=== PATIENT | female | born 1950 | race Caucasian/White ===

== ENCOUNTER → 2019-09-14 | Outpatient (CLI) | payer MEDICARE, OTHER | END | disposition home or self-care (01) | LOC: LABPAT 14:20 | PROVIDERS: ATTEND Orthopaedic Surgery | DX: Z01.812 Encounter for preprocedural laboratory examination (principal) | CPT/HCPCS: 87070 ==

== ENCOUNTER → 2019-10-02 | Outpatient (CLI) | payer MEDICARE, OTHER ==
[2019-10-02 11:35] LABS: HCT 45.9 % (34.0-46.0); HGB 15.4 gm/dL (11.4-16.0); MCH 33.7 pg (25.0-35.0); MCHC 33.5 g/dL (31.0-37.0); MCV 100.6 fL (80.0-100.0); Mean Platelet Volume 6.4; Platelet Count 391 k/uL (150-450); RBC 4.57 m/uL (3.80-5.40); RDW 12.7 % (11.5-15.5); WBC 6.6 k/uL (3.8-10.6)
[2019-10-02 11:41] LABS: INR 0.9 (<1.2); Partial Thromboplastin Time 25.7 sec (22.0-30.0)
[2019-10-02 11:43] LABS: ALT 20 U/L (9-52); AST 17 U/L (14-36); African American GFR (CKD) >90 (>60 ml/min/1.73 sqM); Albumin 3.9 g/dL (3.5-5.0); Alkaline Phosphatase 89 U/L (38-126); Anion Gap 8 mmol/L; Blood Urea Nitrogen 11 mg/dL (7-17); Calcium 9.7 mg/dL (8.4-10.2); Carbon Dioxide 25 mmol/L (22-30); Chloride 107 mmol/L (98-107); Glucose 92 mg/dL (74-99); Non-African American GFR(CKD) >90 (>60 ml/min/1.73 sqM); Potassium 4.7 mmol/L (3.5-5.1); Sodium 140 mmol/L (137-145); Total Bilirubin 0.4 mg/dL (0.2-1.3); Total Protein 6.8 g/dL (6.3-8.2)
[2019-10-02 12:16] LABS: Appearance,Urine Clear (Clear); Bilirubin,Urine Negative (Negative); Blood,Urine Negative (Negative); Color,Urine Yellow; Glucose,Urine (UA) Negative (Negative); Ketones,Urine Negative (Negative); Leukocyte Esterase,Urine Trace (Negative); Mucus,Urine Rare /hpf; Nitrite,Urine Negative (Negative); PH, Urine 6.5 (5.0-8.0); Protein,Urine Negative (Negative); RBC,Urine <1 /hpf (0-5); Specific Gravity,Urine 1.007 (1.001-1.035); Squamous Epithelial Cell,Urine <1 /hpf (0-4); Urobilinogen,Urine <2.0 mg/dL (<2.0); WBC,Urine 1 /hpf (0-5)
== END ==
LOC: LABPAT 10:29
PROVIDERS: ATTEND Orthopaedic Surgery
DX: Z01.818 Encounter for other preprocedural examination (principal); Z01.812 Encounter for preprocedural laboratory examination; M16.12 Unilateral primary osteoarthritis, left hip
CPT/HCPCS: 36415; 80053; 81001; 85027; 85610; 85730; 93005

== ENCOUNTER 2019-10-10 08:03 | Inpatient (IN) | payer MEDICARE, OTHER ==
[2019-09-27 12:37] VITALS: BMI 36.3
[~2019-10-10 08:03] MED LIST: ACETAMINOPHEN TAB 500 MG TAB PO ONE; DEXAMETHASONE SOD PHOSPHATE 10 MG/ML 1 ML VIAL IV ONE; GABAPENTIN 300 MG CAP PO ONE; HYDROmorphone 0.5 MG/0.5 ML SYRINGE IVP PRN; MELOXICAM 7.5 MG TAB PO ONE; MIDAZOLAM 2 MG/2 ML VIAL IV PRN; ROPIVACAINE 246.25 MG, EPINEPHrine 0.5 MG, KETOROLAC 30 MG, cloNIDine HCL/PF 80 MCG, WA... MISCELLANE ONE; TRANEXAMIC ACID 1,000 MG in SODIUM CHLORIDE 0.9% 100 ML IVPB ONE
[2019-10-10] MEDS ORDERED: LIDOCAINE 1% 20 ML VIAL (10MG/ML) FOR IV START INTRADERMA ONE (08:38)
[2019-10-10] MEDS: LACTATED RINGERS 1,000 ML IV SCH (08:38)
[2019-10-10] MEDS ORDERED: DIAZEPAM 5 MG TAB PO PRN (08:43)
[2019-10-10] MEDS ORDERED: HYDROmorphone 0.5 MG/0.5 ML SYRINGE IVP PRN ×3 (08:43)
[2019-10-10] MEDS ORDERED: NALOXONE 0.4 MG/ML 1 ML VIAL IV PRN (08:43)
[2019-10-10] MEDS ORDERED: ONDANSETRON 4 MG/2 ML VIAL IVP PRN (08:43)
[2019-10-10] MEDS ORDERED: MAGNESIUM HYDROXIDE 2,400 MG/10 ML CUP PO PRN (08:43)
[2019-10-10] MEDS ORDERED: hydrOXYzine PAMOATE 25 MG CAP PO PRN (08:43)
[2019-10-10] MEDS ORDERED: HYDROcodone/APAP 5-325MG 1 EACH TAB PO PRN (08:43)
[2019-10-10] MEDS: ONDANSETRON 4 MG/2 ML VIAL IVP ONE ×2 (08:45→13:09)
[2019-10-10] MEDS ORDERED: HEPARIN SODIUM,PORCINE 10,000 UNIT/ML 1 ML VIAL ONE (09:04)
[2019-10-10] MEDS ORDERED: MIDAZOLAM 2 MG/2 ML VIAL ONE (09:04)
[2019-10-10] MEDS ORDERED: TRANEXAMIC ACID 1,000 MG/10 ML VIAL ONE (09:04)
[2019-10-10] MEDS ORDERED: SODIUM CHLORIDE 0.9% IRRIG 1,000 ML BTL IRRIGATION ONE (09:04)
[2019-10-10] MEDS ORDERED: SODIUM CHLORIDE 0.9% 100 ML BAG ONE (09:04)
[2019-10-10] MEDS ORDERED: ceFAZolin 3,000 MG in SODIUM CHLORIDE 0.9% IRRIGATIO 3,000 ML IRRIGATION ONE ×4 (09:49)
[2019-10-10] MEDS ORDERED: LACTATED RINGERS 1,000 ML IV ONE (09:58)
--- NOTE | 2019-10-10 10:36 | P.OP ---
Date of Procedure: 10/10/19 Preoperative Diagnosis: Severe osteoarthritis left hip Postoperative Diagnosis: Severe osteoarthritis left hip Procedure(s) Performed: Left total hip arthroplasty with a direct anterior approach Implants: Mckoy and nephew Polarstem size 6 standard Mckoy [employer] Nephew R3, 3 hole acetabular shell, 52 mm Mckoy [employer] Nephew reflection 6.5 mm cancellus screw, 20 mm 2 Mckoy [employer] Nephew R3, XLPE 20 acetabular liner Mckoy & Nephew Oxinium femoral head 36 m, +8 All components were press-fit. The articulation is Oxinium on polyethylene. Anesthesia: spinal Surgeon: Renzo Proctor Hide Spreader #1: Darline Velazquez Estimated Blood Loss (ml): 100 Pathology: other (Femoral head) Condition: stable Disposition: PACU Indications for Procedure: After failure of conservative treatment we discussed the surgical and nonsurgical treatment options at length. Patient wishes to proceed with a total hip arthroplasty with a direct anterior approach. Complications specific to this procedure were discussed at length, including but not limited to infection, leg length discrepancy, dislocation, and nerve injury. Patient is aware of all these complications and informed consent was obtained Operative Findings: The operative findings are consistent with severe osteoarthritis of the left hip Description of Procedure: Patient was seen and evaluated in the preoperative area, consent was reviewed, and the surgical site was marked with a skin marker. Patient was then brought to the operating room and given prophylactic antibiotics intravenously. 1 g of Tranexamic acid was also given. A spinal anesthetic was administered by the anesthesia department. The patient was then placed on the Chamisal table with the bony prominences well-padded. The hip area was then prepped and draped in usual sterile fashion. A universal timeout was then performed, which confirmed the patient's name, surgical site, ALLERGIES, and procedure being performed. Next the incision site was located at 1 cm distal and 1 cm lateral to the anterior superior iliac spine. The skin and subcutaneous tissues were sharply incised. Incision was carefully dissected down to the fascia overlying the tensor fascia pamela muscle. This fascia was then incised in line with the incision. Next, using blunt finger dissection, the tensor fascia pamela muscle was dissected off its investing fascia. The muscle was then carefully retracted laterally with a cobra retractor over the lateral neck of the femur. Next, the circumflex vessels were identified and cauterized using the AquaMantis device. The anterior hip capsule was then exposed. The capsule was then opened and an inverted T fashion. Cobra retractors were then placed intracapsularly. The proximal femur was then visualized. The femoral neck was then osteotomized appropriate level above the lesser trochanter. Small amount of traction was placed with the Chamisal table. A small wedge of bone was then removed from the remaining femoral head. Next, using a corkscrew femoral head was easily removed from the acetabulum. On gross visual inspection, the femoral head had complete loss of articular cartilage in multiple periarticular osteophytes. Attention was then turned to the acetabulum. the acetabulum was exposed and any remaining labrum was excised. Sequential reaming of the acetabulum was performed using fluoroscopic guidance. When the appropriate size was reached, a trial was then placed. The position and fit of the trial was checked with fluoroscopy. The trial was then removed. Then, using fluoroscopic guidance, the final implant was impacted at 20 of anteversion and 40 of abduction, and fully seated in the acetabulum. 2 screws were then placed in the acetabulum. Again fluoroscopy was used to check position of the screws. Next, the liner was then impacted, with a 20 elevated liner located in the anterior superior quadrant. Component locking was confirmed. Attention was then directed to the femur. With the aid of the Chamisal table, the femur was externally rotated to approximately 130, extended, and abducted under the opposite leg. A side hook was then placed under the proximal femur, and the side hook elevator was used to elevate the proximal femur. Retractors were then placed. A capsular release was performed, as well as a release of the conjoined tendon, which afforded excellent visualization of the proximal femur. Next, a box osteotome was used to lateralize the proximal femur. A wood stock blank handler was then used to locate the femoral canal. Sequential broaching was then performed with appropriate size which afforded excellent fixation in the proximal femur. A trial was then placed with appropriate head and neck, and the hip was gently reduced with the aid of the Chamisal table. Fluoroscopy was then used to check position of the components, as well as to ensure equal leg lengths. The hip was then gently dislocated and the trials were then removed. Final implants were then impacted and the hip was again reduced. Final fluoroscopic x-rays confirmed that the components were in anatomic position, as well as equal leg lengths. The hip was also taken through range of motion, and found to be s table. The hip was then copiously irrigated with antibiotic solution with pulsatile lavage. The hip was then irrigated with Irrisept solution. The soft tissues were then injected with a ropivacaine solution, which consisted of 246.25 mg of ropivacaine, 0.5 mg of epinephrine, 30 mg of Toradol, 80 g of clonidine, and 48.45 mL of sterile water, for a total of 100 mL of fluid injected. A second d ose of 1 g of Tranexamic acid was also given. the fascia was then closed with 2-0 strata fix suture. The subcutaneous tissue was closed with 3-0 Vicryl. The subcuticular tissue was closed with 3-0 strata fix suture. The skin was then closed with Dermabond glue and a sterile silver dressing. The patient was then transferred to the recovery room in stable condition. The payroll assistant NICO Archibald was required due to the complexity of surgery, and the need for skilled surgical scheduler for positioning, draping, exposure, retraction, and closure of the wound.
--- NOTE | 2019-10-10 10:46 | FL ---
EXAMINATION TYPE: FL guidance operating room DATE OF EXAM: 10/10/2019 HISTORY: Flouroscopy time 44 seconds of fluoroscopy provided. IMPRESSION: 1. Fluoroscopy time.
--- NOTE | 2019-10-10 10:53 | XR ---
EXAMINATION TYPE: XR Hip Limited LT DATE OF EXAM: 10/10/2019 COMPARISON: NONE HISTORY: Postop TECHNIQUE: One view submitted. FINDINGS: There is postsurgical change in near anatomic alignment. There is soft tissue edema and emphysema. IMPRESSION: 1. Postoperative change. Appears in near-anatomic alignment.
[2019-10-10] MEDS: SODIUM CHLORIDE 0.9% 1,000 ML IV SCH ×2 (15:06→20:45)
[2019-10-10] MEDS: HYDROcodone/APAP 5-325MG 1 EACH TAB PO PRN ×2 (17:20→23:32)
[2019-10-10] MEDS: SENNOSIDES-DOCUSATE SODIUM 1 EACH TAB PO SCH (20:43)
[2019-10-10] MEDS ORDERED: ASPIRIN 325 MG TAB PO SCH (21:00)
[2019-10-10 21:44] LABS: Basophils % (A) 0 %; Eosinophils % (A) 0 %; HCT 40.6 % (34.0-46.0); HGB 13.1 gm/dL (11.4-16.0); Lymphocytes # (A) 0.8 k/uL (1.0-4.8); Lymphocytes % (A) 8 %; MCH 32.5 pg (25.0-35.0); MCHC 32.3 g/dL (31.0-37.0); MCV 100.5 fL (80.0-100.0); Mean Platelet Volume 6.4; Monocytes # (A) 0.4 k/uL (0-1.0); Monocytes % (A) 4 %; Neutrophils # (A) 8.8 k/uL (1.3-7.7); Neutrophils % (A) 87 %; Platelet Count 380 k/uL (150-450); RBC 4.04 m/uL (3.80-5.40); RDW 12.6 % (11.5-15.5); WBC 10.1 k/uL (3.8-10.6)
[2019-10-10 22:12] LABS: INR 0.9 (<1.2); Partial Thromboplastin Time 24.9 sec (22.0-30.0); Prothrombin Time 9.8 sec (9.0-12.0)
--- NOTE | 2019-10-10 22:43 | P.CONS ---
History of Present Illness - Reason for Consult Consult date: 10/10/19 Medical management Requesting physician: Renzo Proctor - Chief Complaint Left hip surgery - History of Present Illness Consultation: This is a pleasant 68-year-old patient of Dr. Juan Mckoy. Patient has come undergone left total hip arthroplasty. Postprocedure some pain is present. No nausea vomiting. No dizziness no lightheadedness. No chest pain. Chronic st able medical conditions include lupus, rheumatoid arthritis, skin cancer and osteoarthritis. Patient has been on azathioprined. Postprocedure patient to the bathroom psych intervention radiology and she'll require a bit blood in the same. Denies any prior history of bleeding/hematuria. No no Dudley catheter was placed. Patient is on aspirin for DVT prophylaxis. Denies any bleeding complications from lupus in the past. Denies any clots strokes etc. Review of systems: GEN.: Tired EYES: None HEENT: None NECK: None RESPIRATORY: None CARDIOVASCULAR: None GASTROINTESTINAL: None GENITOURINARY: As above MUSCULOSKELETAL: Joint pains LYMPHATICS: None HEMATOLOGICAL: None PSYCHIATRY: None NEUROLOGICAL: None Past medical history to include: Lupus, rheumatoid arthritis, skin cancer osteoarthritis Social history: Does not smoke or drink alcohol. Lives alone Physical examination: VITAL SIGNS: 97.7, 98, 16, 128/74, 95% room air GENERAL: BMI 36.5 laying in bed. EYES: Pupils equal. Conjunctiva normal. HEENT: External appearance of nose and ears normal, oral cavity grossly normal. NECK: JVD not raised; masses not palpable. HEART: First and second heart sounds are normal; no edema. LUNGS: Respiratory rate normal; clear to auscultation. ABDOMEN: Soft, nontender, liver spleen not palpable, no masses palpable. PSYCH: Alert and oriented x3; mood and affect normal. NEUROLOGICAL: Cranial nerves grossly intact; no facial asymmetry, power and sensation grossly intact. LYMPHATICS: No lymph nodes palpable in the axilla and neck MUSCULOSKELETAL: Left hip with a dressing INVESTIGATIONS, reviewed in the clinical context: White count 10.1 hemoglobin 13.1 platelets 380 pro time 9.8 PTT 24.9 to fibrinogen 362 Assessment: -Left total hip arthroplasty -Primary osteoarthritis -Primary rheumatoid arthritis -Lupus disorder -New onset hematuria. I did order a pro time and PTT platelet count with halting normal. Patient had been ordered aspirin for DVT prophylaxis. That currently has been held. Patient has been Venodyne boots. Plan: We'll keep a close eye on the patient. Told the patient to keep a close eye the urine output. If need be urology will be consulted. Aspirin has been put on hold for right now. Compression stockings are noted. Discussed with the nurse. Thank you Dr. Proctor Past Medical History Past Medical History: Cancer, Rheumatoid Arthritis (RA) Additional Past Medical History / Comment(s): LUPUS, SKIN CANCER-BASAL CELL, History of Any Multi-Drug Resistant Organisms: None Reported Past Surgical History: Cholecystectomy, Hernia Repair, Tonsillectomy, Tubal Ligation Additional Past Surgical History / Comment(s): SKIN LESIONS,RIGHT TOTAL HIP, TLK Past Anesthesia/Blood Transfusion Reactions: Motion Sickness, Postoperative Nausea & Vomiting (PONV) Past Psychological History: No Psychological Hx Reported Smoking Status: Never smoker Past Alcohol Use History: None Reported Past Drug Use History: None Reported - Past Family History Father Family Medical History: Cancer Medications and Allergies Home Medications Medication Instructions Recorded Confirmed Type Loratadine [Claritin] 10 mg PO DAILY 03/20/15 10/10/19 History Acetaminophen Tab [Tylenol Tab] 1,000 mg PO Q6HR PRN 09/27/19 10/10/19 History Acetaminophen/Diphenhydramine 1 tab PO HS 09/27/19 10/10/19 History [Tylenol PM 500-25mg] Biotin 10,000 mcg PO DAILY 09/27/19 10/10/19 History Naproxen [Naprosyn] 250 mg PO TID 09/27/19 10/10/19 History Omeprazole [PriLOSEC] 20 mg PO AC-BRKFST 09/27/19 10/10/19 History azaTHIOprine [Imuran] 25 mg PO DAILY 09/27/19 10/10/19 History Allergies Allergy/AdvReac Type Severity Reaction Status Date / Time adhesive tape Allergy SKIN Verified 10/10/19 08:30 BLISTERS AND SKIN TEARS hydroxychloroquine sulfate Allergy Rash/Hives Verified 10/10/19 08:30 [From Plaquenil] methotrexate Allergy NASAL Verified 10/10/19 08:30 BLEEDING Physical Exam Vitals: Vital Signs Temp Pulse Resp BP Pulse Ox 10/10/19 15:00 97.7 F 98 16 118/74 95 10/10/19 14:03 116/53 10/10/19 13:00 98 16 113/53 95 10/10/19 12:30 100 16 111/59 95 10/10/19 12:00 90 16 112/64 97 10/10/19 11:45 85 14 112/52 98 10/10/19 11:30 86 16 128/58 99 10/10/19 11:15 84 16 114/50 97 10/10/19 10:57 96.8 F L 90 19 97/60 98 10/10/19 08:28 97.5 F L 75 16 154/75 98 Intake and Output 10/10/19 10/10/19 10/10/19 06:59 14:59 22:59 Intake Total 1501 Output Total 100 500 Balance 1401 -500 Intake: IV 1501 Output: Urine 500 Estimated Blood Loss 100 Other: Voiding Method Toilet Toilet # Voids 1 Weight 102.6 kg Results CBC & Chem 7: 10/10/19 21:13 Labs: Abnormal Lab Results - Last 24 Hours (Table) 10/10/19 Range/Units 21:13 MCV 100.5 H (80.0-100.0) fL Neutrophils # 8.8 H (1.3-7.7) k/uL Lymphocytes # 0.8 L (1.0-4.8) k/uL
[2019-10-10 23:34] LABS: Appearance,Urine Clear (Clear); Bilirubin,Urine Negative (Negative); Blood,Urine Negative (Negative); Color,Urine Dark Brown; Glucose,Urine (UA) Negative (Negative); Ketones,Urine Negative (Negative); Leukocyte Esterase,Urine Trace (Negative); Mucus,Urine Occasional /hpf; Nitrite,Urine Negative (Negative); PH, Urine 5.5 (5.0-8.0); Protein,Urine Negative (Negative); RBC,Urine 1 /hpf (0-5); Specific Gravity,Urine 1.022 (1.001-1.035); Squamous Epithelial Cell,Urine <1 /hpf (0-4); Urobilinogen,Urine <2.0 mg/dL (<2.0); WBC,Urine 1 /hpf (0-5)
[2019-10-11] MEDS: LACTATED RINGERS 1,000 ML IV SCH (03:48)
[2019-10-11 07:30] LABS: Basophils % (A) 0 %; Eosinophils % (A) 1 %; HCT 37.2 % (34.0-46.0); HGB 12.4 gm/dL (11.4-16.0); Lymphocytes # (A) 1.4 k/uL (1.0-4.8); Lymphocytes % (A) 22 %; MCH 33.3 pg (25.0-35.0); MCHC 33.4 g/dL (31.0-37.0); MCV 99.9 fL (80.0-100.0); Mean Platelet Volume 6.3; Monocytes # (A) 0.4 k/uL (0-1.0); Monocytes % (A) 7 %; Neutrophils # (A) 4.5 k/uL (1.3-7.7); Neutrophils % (A) 70 %; Platelet Count 330 k/uL (150-450); RBC 3.72 m/uL (3.80-5.40); RDW 12.7 % (11.5-15.5); WBC 6.5 k/uL (3.8-10.6)
[2019-10-11] MEDS: MELOXICAM 7.5 MG TAB PO SCH (08:18)
[2019-10-11] MEDS: HYDROcodone/APAP 5-325MG 1 EACH TAB PO PRN ×3 (08:19→20:07)
--- NOTE | 2019-10-11 08:32 | P.PN ---
Subjective Progress Note Date: 10/11/19 This is a 68-year-old female who is status post left total hip arthroplasty. This is postoperative day #1 and patient is seen and evaluated at bedside with Dr. Renzo Proctor. Patient states that she has been up and walking, but does have soreness in the left hip. Patient also complains of blood in the urine which started yesterday. Patient states that she has not had symptoms of hem aturia previously. Patient denies any pain with urination, fever/chills, numbness, weakness, tingling, abdominal pain, shortness of breath or chest pain. Objective - Vital Signs Vital signs: Vital Signs Temp 98.3 F 10/10/19 23:05 Pulse 86 10/10/19 23:05 Resp 16 10/10/19 19:18 BP 119/75 10/10/19 23:05 Pulse Ox 97 10/10/19 23:05 Intake & Output 10/10/19 10/11/19 10/11/19 18:59 06:59 18:59 Intake Total 1501 960 Output Total 600 Balance 901 960 Weight 102.6 kg Intake: IV 1501 Oral 960 Output: Urine 500 Estimated Blood Loss 100 Other: Voiding Method Toilet Toilet # Voids 1 1 - Exam Vital signs are stable. Patient is in no acute distress and is alert and oriented 3. Calf is soft and nontender to palpation. Dressing is clean, dry, and intact. Patient has full foot and ankle motion without pain or difficulty. Neurovascular status and circulatory status are intact. - Labs CBC & Chem 7: 10/11/19 07:18 Labs: Abnormal Lab Results - Last 24 Hours (Table) 10/10/19 10/10/19 10/11/19 Range/Units 21:13 23:20 07:18 RBC 3.72 L (3.80-5.40) m/uL MCV 100.5 H (80.0-100.0) fL Neutrophils # 8.8 H (1.3-7.7) k/uL Lymphocytes # 0.8 L (1.0-4.8) k/uL Ur Leukocyte Esterase Trace H (Negative) Urine Mucus Occasional H (None) /hpf Assessment and Plan (1) Osteoarthritis of left hip Current Visit: Yes Status: Acute Code(s): M16.12 - UNILATERAL PRIMARY OSTEOARTHRITIS, LEFT HIP SNOMED Code(s): 169561368183906 (2) S/P total hip arthroplasty Current Visit: Yes Status: Acute Code(s): Z96.649 - PRESENCE OF UNSPECIFIED ARTIFICIAL HIP JOINT SNOMED Code(s): 294026177778 Plan: Continue routine postop care and pain control. Continue anticoagulation with aspirin. Weightbearing as tolerated with a walker. Leave dressing in place for 10 days. Appreciate input from medicine and urology. Anticipate discharge to [facility] on Wednesday.
--- NOTE | 2019-10-11 08:56 | P.GSCN ---
History of Present Illness Consult date: 10/11/19 Reason for Consult: Hematuria History of present illness: The patient is a pleasant 68-year-old female who underwent a left hip arthroplasty yesterday for arthritis and pain. Yesterday evening she developed gross hematuria, bright red blood per urination. This occurred 3 episodes over the night and has clear this morning. This was new onset. She's never had previous hematuria. Urinalysis preoperatively was clear. She was having some back pain but it was more low back then flank. She has had no dysuria frequency or urgency. She did not have a catheter intraoperatively. No family history of stones. There is a family history of kidney failure. Review of Systems All systems: negative - Constitutional Denies fever, Denies weight loss - EENT Eyes: denies blurred vision Ears, nose, mouth and throat: Denies dysphagia - Cardiovascular Denies chest pain, Denies shortness of breath - Respiratory Denies cough, Denies 7 - Gastrointestinal Reports as per HPI - Genitourinary Genitourinary: Denies dysuria, Denies hematuria - Integumentary Denies rash, Denies unusual bruising - Neurological Denies headaches, Denies syncope - Hematologic/Lymphatic Denies easy bleeding, Denies easy bruising Past Medical History Past Medical History: Cancer, Rheumatoid Arthritis (RA) Additional Past Medical History / Comment(s): LUPUS, SKIN CANCER-BASAL CELL, History of Any Multi-Drug Resistant Organisms: None Reported Past Surgical History: Cholecystectomy, Hernia Repair, Tonsillectomy, Tubal Ligation Additional Past Surgical History / Comment(s): SKIN LESIONS,RIGHT TOTAL HIP, TLK Past Anesthesia/Blood Transfusion Reactions: Motion Sickness, Postoperative Nausea & Vomiting (PONV) Past Psychological History: No Psychological Hx Reported Smoking Status: Never smoker Past Alcohol Use History: None Reported Past Drug Use History: None Reported - Past Family History Father Family Medical History: Cancer Medications and Allergies Home Medications Medication Instructions Recorded Confirmed Type Loratadine [Claritin] 10 mg PO DAILY 03/20/15 10/10/19 History Acetaminophen Tab [Tylenol Tab] 1,000 mg PO Q6HR PRN 09/27/19 10/10/19 History Acetaminophen/Diphenhydramine 1 tab PO HS 09/27/19 10/10/19 History [Tylenol PM 500-25mg] Biotin 10,000 mcg PO DAILY 09/27/19 10/10/19 History Naproxen [Naprosyn] 250 mg PO TID 09/27/19 10/10/19 History Omeprazole [PriLOSEC] 20 mg PO AC-BRKFST 09/27/19 10/10/19 History azaTHIOprine [Imuran] 25 mg PO DAILY 09/27/19 10/10/19 History Aspirin 325 mg PO BID #60 tab 10/11/19 Rx HYDROcodone/APAP 5-325MG [Dalbo 1 - 2 tab PO Q6HR PRN #56 tab 10/11/19 Rx 5-325] Sennosides [Senokot] 1 tab PO BID #60 tablet 10/11/19 Rx Allergies Allergy/AdvReac Type Severity Reaction Status Date / Time adhesive tape Allergy SKIN Verified 10/10/19 08:30 BLISTERS AND SKIN TEARS hydroxychloroquine sulfate Allergy Rash/Hives Verified 10/10/19 08:30 [From Plaquenil] methotrexate Allergy NASAL Verified 10/10/19 08:30 BLEEDING Surgical - Exam Vital Signs Temp Pulse Resp BP Pulse Ox 97.5 F L 75 16 154/75 98 10/10/19 08:28 10/10/19 08:28 10/10/19 08:28 10/10/19 08:28 10/10/19 08:28 - General well developed, well nourished, no distress - Eyes PERRL - ENT no hearing loss - Neck trachea midline - Respiratory normal expansion, normal respiratory effort - Cardiovascular Rhythm: regular - Abdomen Abdomen: soft, non tender - Integumentary no rash, no growths - Neurologic normal coordination, normal sensation - Musculoskeletal The patient is using a walker due to the recent left hip arthroplasty normal posture - Psychiatric oriented to time, oriented to person, oriented to place, speech is normal, memory intact Results - Labs 10/11/19 07:18 Abnormal Lab Results - Last 24 Hours (Table) 10/10/19 10/10/19 10/11/19 Range/Units 21:13 23:20 07:18 RBC 3.72 L (3.80-5.40) m/uL MCV 100.5 H (80.0-100.0) fL Neutrophils # 8.8 H (1.3-7.7) k/uL Lymphocytes # 0.8 L (1.0-4.8) k/uL Ur Leukocyte Esterase Trace H (Negative) Urine Mucus Occasional H (None) /hpf Assessment and Plan Assessment: Impression: Gross hematuria and new-onset. Back pain probably related to hip with decreased mobility. Recommendations: I will obtain a urinalysis and a KUB to rule out obvious infection and/or stone. If Nothing is identified then she may be discharged from a urologic standpoint to undergo her rehab. I will then see her as an outpatient for further evaluation.
--- NOTE | 2019-10-11 10:24 | XR ---
EXAMINATION TYPE: XR KUB DATE OF EXAM: 10/11/2019 COMPARISON: NONE HISTORY: Pain TECHNIQUE: One view abdominal series FINDINGS: The osseous structures are intact. The bowel gas pattern is nonspecific. Scattered air-fluid levels noted. Surgical clips in the right upper quadrant. Curvature the spine with degenerative change. Post operative change involving the hips bilaterally. IMPRESSION: 1. Nonspecific abdomen. Ileus or enteritis in the differential diagnosis. Partial obstruction not exc luded correlate clinically.
[2019-10-11] MEDS: SODIUM CHLORIDE 0.9% 1,000 ML IV SCH (12:11)
[2019-10-11] MEDS: ASPIRIN 325 MG TAB PO SCH ×2 (12:11→20:07)
[2019-10-11 18:22] LABS: Appearance,Urine Clear (Clear); Bilirubin,Urine Negative (Negative); Blood,Urine Negative (Negative); Color,Urine Light Yellow; Glucose,Urine (UA) Negative (Negative); Ketones,Urine Negative (Negative); Leukocyte Esterase,Urine Negative (Negative); Nitrite,Urine Negative (Negative); PH, Urine 5.5 (5.0-8.0); Protein,Urine Negative (Negative); Specific Gravity,Urine 1.006 (1.001-1.035); Urobilinogen,Urine <2.0 mg/dL (<2.0)
[2019-10-11] MEDS: SENNOSIDES-DOCUSATE SODIUM 1 EACH TAB PO SCH (20:07)
--- NOTE | 2019-10-11 23:27 | P.PN ---
Progress Note - Text Progress Note Date: 10/11/19 - Chief Complaint Left hip surgery Interval history: This is a pleasant 68-year-old patient of Dr. Juan Mckoy. Patient has come undergone left total hip arthroplasty. Postprocedure some pain is present. No nausea vomiting. No dizziness no lightheadedness. No chest pain. Chronic stable medical conditions include lupus, rheumatoid arthritis, skin cancer and osteoarthritis. Patient has been on azathioprine. Postprocedure patient to the bathroom noticed a bit of blood in the same. Denies any prior history of bleeding/hematuria. No no Dudley catheter was placed. Patient is on aspirin for DVT prophylaxis. Denies any bleeding complications from lupus in the past. Denies any clots strokes etc. Today-laying in bed. No new issues. Some pain at the operative site. Did work with therapy. Review of systems: Was done for constitutional, cardiovascular, GI, pulmonary. relevant finding as above Active Medications Hydrocodone Bitart/Acetaminophen (Delmar 5-325) 1 each PO Q6HR PRN PRN Reason: Pain Scale 1 to 5 Hydrocodone Bitart/Acetaminophen (Delmar 5-325) 2 each PO Q6HR PRN PRN Reason: Pain Scale 6 to 10 Last Admin: 10/11/19 20:07 Dose: 2 each Documented by: Aspirin (Aspirin) 325 mg PO BID [facility] Last Admin: 10/11/19 20:07 Dose: 325 mg Documented by: Diazepam (Valium) 2.5 mg PO Q8HR PRN PRN Reason: Mild Spasms Hydromorphone HCl (Dilaudid) 0.125 mg IVP Q3HR PRN PRN Reason: Pain Scale 1 to 3 Hydromorphone HCl (Dilaudid) 0.25 mg IVP Q3HR PRN PRN Reason: Pain Scale 4 to 6 Hydromorphone HCl (Dilaudid) 0.5 mg IVP Q3HR PRN PRN Reason: Pain Scale 7 to 10 Hydroxyzine Pamoate (Vistaril) 25 mg PO Q4HR PRN PRN Reason: Nausea, Anxiety, Pain Control Sodium Chloride (Saline 0.9%) 1,000 mls @ 70 mls/hr IV .[id number] [facility] Last Admin: 10/11/19 12:11 Dose: 70 mls/hr Documented by: Magnesium Hydroxide (Milk Of Magnesia) 2,400 mg PO DAILY PRN PRN Reason: Constipation Meloxicam (Mobic) 7.5 mg PO DAILY [facility] Last Admin: 10/11/19 08:18 Dose: 7.5 mg Documented by: Naloxone HCl (Narcan) 0.2 mg IV Q2M PRN PRN Reason: Opioid Reversal Ondansetron HCl (Zofran) 4 mg IVP Q8H PRN PRN Reason: Nausea And Vomiting Senna/Docusate Sodium (Senokot-S) 2 each PO HS [facility] Last Admin: 10/11/19 20:07 Dose: 2 each Documented by: Physical examination: VITAL SIGNS: 98.4, 92, 16, 104/66, 95% room air GENERAL: Laying in bed, not in distress. EYES: Pupils equal. Conjunctiva normal. HEENT: External appearance of nose and ears normal, oral cavity grossly normal. NECK: JVD not raised; masses not palpable. HEART: First and second heart sounds are normal; no edema. LUNGS: Respiratory rate normal; clear to auscultation. ABDOMEN: Soft, nontender, liver spleen not palpable, no masses palpable. PSYCH: Alert and oriented x3; mood and affect normal. MUSCULOSKELETAL: Left hip with a dressing INVESTIGATIONS, reviewed in the clinical context: White count 6.5 hemoglobin 12.4, UA negative Previous testing White count 10.1 hemoglobin 13.1 platelets 380 pro time 9.8 PTT 24.9 to fibrinogen 362 Assessment: -Left total hip arthroplasty -Primary osteoarthritis -Primary rheumatoid arthritis -Lupus disorder -New onset hematuria. Hematological workup has come back negative. UA screen negative. No further bleeding. Plan: Stable. Continue current medication treatment plan. Patient was seen by urology. Patient has been receiving aspirin. Thank you Dr. Proctor
[2019-10-12] MEDS: SODIUM CHLORIDE 0.9% 1,000 ML IV SCH (01:14)
[2019-10-12] MEDS: HYDROcodone/APAP 5-325MG 1 EACH TAB PO PRN ×4 (02:33→20:25)
[2019-10-12] MEDS: ASPIRIN 325 MG TAB PO SCH ×2 (08:02→19:53)
[2019-10-12] MEDS: MELOXICAM 7.5 MG TAB PO SCH (08:02)
--- NOTE | 2019-10-12 10:19 | P.PN ---
Subjective Progress Note Date: 10/12/19 This is a 68-year-old female who is status post left total hip arthroplasty. This is postoperative day #2 and patient is seen and evaluated at bedside with Dr. Renzo Proctor. Patient states that the blood in her urine has resolved. Patient states that she has been up and walking with physical therapy. Patient denies any pain with urination, fever/chills, numbness, weakness, tingling, abdominal pain, shortness of breath or chest pain. Objective - Vital Signs Vital signs: Vital Signs Temp 98.3 F 10/12/19 07:07 Pulse 89 10/12/19 07:07 Resp 17 10/12/19 07:07 BP 135/78 10/12/19 07:07 Pulse Ox 95 10/12/19 07:07 Intake & Output 10/11/19 10/12/19 10/12/19 18:59 06:59 18:59 Intake Total 800 960 Balance 800 960 Intake: IV 560 Sodium Chloride 0.9% 1, 560 000 ml @ 70 mls/hr IV . [id number] [facility] Rx#:[id number] Oral 240 960 Other: Voiding Method Toilet # Voids 1 1 # Bowel Movements 1 - Exam Vital signs are stable. Patient is in no acute distress and is alert and orient ed 3. Calf is soft and nontender to palpation. Dressing is clean, dry, and intact. Patient has full foot and ankle motion without pain or difficulty. Neurovascular status and circulatory status are intact. - Labs CBC & Chem 7: 10/11/19 07:18 Assessment and Plan (1) Osteoarthritis of left hip Current Visit: Yes Status: Acute Code(s): M16.12 - UNILATERAL PRIMARY OSTEOARTHRITIS, LEFT HIP SNOMED Code(s): 936176464848255 (2) S/P total hip arthroplasty Current Visit: Yes Status: Acute Code(s): Z96.649 - PRESENCE OF UNSPECIFIED ARTIFICIAL HIP JOINT SNOMED Code(s): 288267831120 Plan: Continue routine postop care and pain control. Continue anticoagulation with aspirin. Weightbearing as tolerated with a walker. Leave dressing in place for 10 days. Appreciate input from medicine and urology. Anticipate discharge to [facility] on Wednesday.
--- NOTE | 2019-10-12 11:37 | P.PN ---
Subjective Progress Note Date: 10/12/19 The patient was seen for hematuria. Her urinalysis was clear one performed yesterday. Her KUB showed no evident stone. I will see her as an outpatient in the office. Objective - Vital Signs Vital signs: Vital Signs Temp 98.3 F 10/12/19 07:07 Pulse 89 10/12/19 07:07 Resp 17 10/12/19 07:07 BP 135/78 10/12/19 07:07 Pulse Ox 95 10/12/19 07:07 Intake & Output 10/11/19 10/12/19 10/12/19 18:59 06:59 18:59 Intake Total 800 960 Balance 800 960 Intake: IV 560 Sodium Chloride 0.9% 1, 560 000 ml @ 70 mls/hr IV . [id number] Rx#:[id number] Oral 240 960 Other: Voiding Method Toilet # Voids 1 1 # Bowel Movements 1 - Labs CBC & Chem 7: 10/11/19 07:18
[2019-10-12 11:58] LABS: APTT 40 Sec(s) (<43); Dilute Russell Viper Venom 37 Sec(s) (<44)
[2019-10-12] MEDS: SENNOSIDES-DOCUSATE SODIUM 1 EACH TAB PO SCH (19:53)
[2019-10-13] MEDS: HYDROcodone/APAP 5-325MG 1 EACH TAB PO PRN ×2 (02:49→08:16)
[2019-10-13 07:35] LABS: Basophils % (A) 0 %; Eosinophils # (A) 0.3 k/uL (0-0.7); Eosinophils % (A) 5 %; HCT 34.9 % (34.0-46.0); HGB 11.6 gm/dL (11.4-16.0); Lymphocytes # (A) 1.4 k/uL (1.0-4.8); Lymphocytes % (A) 21 %; MCH 33.2 pg (25.0-35.0); MCHC 33.3 g/dL (31.0-37.0); MCV 99.6 fL (80.0-100.0); Mean Platelet Volume 7.4; Monocytes # (A) 0.4 k/uL (0-1.0); Monocytes % (A) 5 %; Neutrophils # (A) 4.5 k/uL (1.3-7.7); Neutrophils % (A) 66 %; Platelet Count 330 k/uL (150-450); RDW 12.4 % (11.5-15.5); WBC 6.7 k/uL (3.8-10.6)
[2019-10-13 08:11] VITALS: BP 118/71; PULSE 86; RESP 17; TEMP 98.5
[2019-10-13] MEDS: ASPIRIN 325 MG TAB PO SCH (08:16)
[2019-10-13] MEDS: MELOXICAM 7.5 MG TAB PO SCH (08:16)
--- NOTE | 2019-10-13 08:35 | P.DS ---
Providers Date of admission: 10/10/19 08:03 Expected date of discharge: 10/13/19 Attending physician: Renzo Proctro Consults: 10/10/19 08:43 Consult Physician Routine Consulting Provider: Keven Bal Consult Reason/Comments: medical management Do you want consulting provider notified?: Yes 10/10/19 20:46 Consult Physician Urgent Consulting Provider: Marcell Little Consult Reason/Comments: hematuria Do you want consulting provider notified?: Yes Primary care physician: Juan Mckoy MD - Discharge Diagnosis(es) (1) Osteoarthritis of left hip Current Visit: Yes Status: Acute (2) S/P total hip arthroplasty Current Visit: Yes Status: Acute Hospital Course: This is a 68-year-old female with known history of degenerative arthritis of the left hip. The patient presents for evaluation. After discussion and considera tion patient elects to proceed with total hip arthroplasty. The patient is seen preoperatively by Dr. Proctor and medically cleared for surgery by their primary care physician. Patient is admitted to [facility] on 10/10/2019 for total hip arthroplasty. The procedures performed without complication or sequelae. The patient is doing well postoperatively. Labs and vital signs are stable on day of discharge. The patient did have an episode of hematuria and was evaluated by urology for this. Patient's symptoms of hematuria have resolved and she will follow up with urology as an outpatient. On day of discharge patient's hip incision is healing well. There is minimal erythema. There is no drainage noted at this time. There is minimal soft tissue swelling to the hip and thigh. Patient has full foot and ankle motion without difficulty or pain. Calf is soft and nontender to palpation. Neurovascular status to the left lower extremity is intact. Patient is discharged home in good condition. Opioid start talking form is reviewed and signed at patient bedside. Please see med rec for accurate list of home medications. Plan - Discharge Summary Discharge Rx Participant: Yes New Discharge Prescriptions: New Aspirin 325 mg PO BID #60 tab HYDROcodone/APAP 5-325MG [[place] 5-325] 1 - 2 tab PO Q6HR PRN #56 tab PRN Reason: Pain Sennosides [Senokot] 1 tab PO BID #60 tablet No Action Loratadine [Claritin] 10 mg PO DAILY Naproxen [Naprosyn] 250 mg PO TID Acetaminophen Tab [Tylenol Tab] 1,000 mg PO Q6HR PRN PRN Reason: Pain azaTHIOprine [Imuran] 25 mg PO DAILY Biotin 10,000 mcg PO DAILY Omeprazole [PriLOSEC] 20 mg PO AC-BRKFST Acetaminophen/Diphenhydramine [Tylenol PM 500-25mg] 1 tab PO HS Discharge Medication List Loratadine [Claritin] 10 mg PO DAILY 03/20/15 [History] Acetaminophen Tab [Tylenol Tab] 1,000 mg PO Q6HR PRN 09/27/19 [History] Acetaminophen/Diphenhydramine [Tylenol PM 500-25mg] 1 tab PO HS 09/27/19 [History] Biotin 10,000 mcg PO DAILY 09/27/19 [History] Naproxen [Naprosyn] 250 mg PO TID 09/27/19 [History] Omeprazole [PriLOSEC] 20 mg PO AC-BRKFST 09/27/19 [History] azaTHIOprine [Imuran] 25 mg PO DAILY 09/27/19 [History] Aspirin 325 mg PO BID #60 tab 10/11/19 [Rx] HYDROcodone/APAP 5-325MG [[place] 5-325] 1 - 2 tab PO Q6HR PRN #56 tab 10/11/19 [Rx] Sennosides [Senokot] 1 tab PO BID #60 tablet 10/11/19 [Rx] Follow up Appointment(s)/Referral(s): Juan Mckoy MD [Primary Care Provider] - 10/19/19 1:45 pm Renzo Proctor DO [Doctor of Osteopathic Medicine] - 10/23/19 1:50 pm Activity/Diet/Wound Care/Special Instructions: Weightbearing as tolerated with walker. Leave dressing intact. Dressing may be removed by home care nurse or by patient in 10 days. May shower with dressing on. Recommend use of compression stockings daily for at least 2 weeks during the day to help prevent swelling and blood clots. May remove at night before sleeping. Please follow-up with [facility] in 2 weeks and call with any questions or concerns, . Discharge Disposition: TRANSFER TO SNF/ECF
--- NOTE | 2019-10-13 10:28 | P.PN ---
Progress Note - Text Progress Note Date: 10/12/19 - Chief Complaint Left hip surgery Interval history: This is a pleasant 68-year-old patient of Dr. Juan Mckoy. Patient has come undergone left total hip arthroplasty. Postprocedure had some hematuria. Which is entirely cleared up. Basic testing including pro time, PTT platelet count normal. Today-comfortable. No new issues. Some pain of the operative site. Did work with therapy. Breathing stable. No further hematuria. Review of systems: Was done for constitutional, cardiovascular, GI, pulmonary. relevant finding as above Current medications are reviewed in today's electronics records Physical examination: VITAL SIGNS: 98.3, 89, 17, 135/78, 95% room air GENERAL: Sitting up, comfortable. EYES: Pupils equal. Conjunctiva normal. HEENT: External appearance of nose and ears normal, oral cavity grossly normal. NECK: JVD not raised; masses not palpable. HEART: First and second heart sounds are normal; no edema. LUNGS: Respiratory rate normal; clear to auscultation. ABDOMEN: Soft, nontender, liver spleen not palpable, no masses palpable. PSYCH: Alert and oriented x3; mood and affect normal. MUSCULOSKELETAL: Left hip with a dressing INVESTIGATIONS, reviewed in the clinical context: White count 6.5 hemoglobin 12.4, UA negative -lupus anticoagulant, not detected Previous testing White count 10.1 hemoglobin 13.1 platelets 380 pro time 9.8 PTT 24.9 to fibrinogen 362 Assessment: -Left total hip arthroplasty -Primary osteoarthritis -Primary rheumatoid arthritis -Lupus disorder -New onset hematuria. Hematological workup has come back negative. UA screen negative. No further bleeding-resolved. Plan: Stable. Continue current medication treatment plan. Patient was seen by urology. Patient has been receiving aspirin. Did talk to the patient to follow-up with her [employer] as an outpatient, to make sure it was not the [id number] bleeding. Thank you Dr. Proctor
--- NOTE | 2019-10-14 05:57 | P.PN ---
Subjective Progress Note Date: 10/13/19 Principal diagnosis: Covering for Dr. Bal This is a pleasant 68-year-old patient of Dr. Juan Mckoy. Patient has come undergone left total hip arthroplasty. Postprocedure had some hematuria. Which is entirely cleared up. Basic testing including pro time, PTT platelet count normal. Today-comfortable. No new issues. Some pain of the operative site. Did work with therapy. Breathing stable. No further hematuria. Review of systems: Was done for constitutional, cardiovascular, GI, pulmonary. relevant finding as above Current medications are reviewed in today's electronics records 10/13/2019 Patient is up to the bathroom currently in no acute distress with no acute overnight issues. Patient has continued to work with PT/OT for strength and mobility. Patient is going to [facility] this afternoon for continued PT/OT. Review of systems: Cardio: No reports of chest pain or palpitations Respiratory: no reports of shortness of breath or cough GI: no reports of nausea, vomiting, or diarrhea : no reports of hematuria, dysuria, or retention Musculoskeletal: mild discomfort reported of the left hip Current medications: [place] Aspirin Mobic Senakot Objective - Vital Signs Vital signs: Vital Signs Temp 98.5 F 10/13/19 07:06 Pulse 86 10/13/19 07:06 Resp 17 10/13/19 07:06 BP 118/71 10/13/19 07:06 Pulse Ox 94 L 10/13/19 07:06 Intake & Output 10/12/19 10/13/19 10/13/19 18:59 06:59 18:59 Intake Total 440 640 Balance 440 640 Intake: Oral 440 640 Other: Voiding Method Toilet Toilet # Voids 2 2 - Exam VITAL SIGNS: 98.5, 86, 17, 118/71, 94% room air GENERAL: Sitting up, comfortable. EYES: Pupils equal. Conjunctiva normal. HEENT: External appearance of nose and ears normal, oral cavity grossly normal. NECK: JVD not raised; masses not palpable. HEART: S1, S2 present LUNGS: Respiratory rate normal; clear to auscultation. No wheezes or rhonchi noted ABDOMEN: Soft, nontender, no masses palpable. PSYCH: Alert and oriented x3; mood and affect normal. MUSCULOSKELETAL: Left hip with a dressing that is dry and intact - Labs CBC & Chem 7: 10/13/19 07:03 Labs: Abnormal Lab Results - Last 24 Hours (Table) 10/13/19 Range/Units 07:03 RBC 3.50 L (3.80-5.40) m/uL Assessment and Plan Assessment: -Left total hip arthroplasty -Primary osteoarthritis -Primary rheumatoid arthritis -Lupus disorder -New onset hematuria. Hematological workup has come back negative. UA screen negative. No further bleeding-resolved. Recommendations and consideration: Recommend to continue current medication and symptomatic management. Patient was seen by urology and will follow up with them in the outpatient setting as discussed. Patient will also follow up with her OBGYN in the outpatient setting. Patient to continue with aspirin. Case management and social work are following and planning for discharge to [facility] this afternoon for continued PT/OT. Guarded prognosis. Further recommendations to follow. Will continue to follow along closely.
== END 2019-10-13 13:48 | DRG 470 ==
LOC: 2ORMAIN 08:03 → 4SSUR 10:52
PROVIDERS: ADMIT Orthopaedic Surgery; ATTEND Orthopaedic Surgery
PROC: 0SRB06A Replacement of Left Hip Joint with Oxidized Zirconium on Polyethylene Synthetic Substitute, Uncemented, Open Approach (ICD-10-PCS; principal; 2019-10-10 09:30)
DX: M16.12 Unilateral primary osteoarthritis, left hip (principal); M06.9 Rheumatoid arthritis, unspecified; E78.5 Hyperlipidemia, unspecified; K21.9 Gastro-esophageal reflux disease without esophagitis; R31.0 Gross hematuria; M54.9 Dorsalgia, unspecified; Z79.1 Long term (current) use of non-steroidal anti-inflammatories (NSAID); Z79.899 Other long term (current) drug therapy; Z96.641 Presence of right artificial hip joint; Z96.652 Presence of left artificial knee joint; Z90.49 Acquired absence of other specified parts of digestive tract; Z85.828 Personal history of other malignant neoplasm of skin; Z98.890 Other specified postprocedural states; Z98.51 Tubal ligation status; Z88.8 Allergy status to other drugs, medicaments and biological substances; Z91.048 Other nonmedicinal substance allergy status
CPT/HCPCS: 73501; 74018; 81001; 81003; 85025; 85384; 85610; 85613; 85730; 86850; 86891; 86900; 86901; 88300

== ENCOUNTER → 2023-06-21 | Outpatient (CLI) | payer MEDICARE, OTHER ==
[~2023-06-21] MED LIST changes: -ACETAMINOPHEN TAB 500 MG TAB PO ONE; -DEXAMETHASONE SOD PHOSPHATE 10 MG/ML 1 ML VIAL IV ONE; -GABAPENTIN 300 MG CAP PO ONE; -HYDROmorphone 0.5 MG/0.5 ML SYRINGE IVP PRN; -MELOXICAM 7.5 MG TAB PO ONE; -MIDAZOLAM 2 MG/2 ML VIAL IV PRN; -ROPIVACAINE 246.25 MG, EPINEPHrine 0.5 MG, KETOROLAC 30 MG, cloNIDine HCL/PF 80 MCG, WA... MISCELLANE ONE; +SODIUM CHLORIDE 0.9% 500 ML 500 ML in EMPTY BAG 1 BAG IV PRN; -TRANEXAMIC ACID 1,000 MG in SODIUM CHLORIDE 0.9% 100 ML IVPB ONE; +ZOLEDRONIC ACID 5 MG in SODIUM CHLORIDE 0.9% 100 ML IV NR
[2023-06-21 10:33] VITALS: BP 143/84; PULSE 59; RESP 16; TEMP 98.2
== END ==
LOC: PROCWHC3 09:55
PROVIDERS: ATTEND Internal Medicine Rheumatology
DX: M81.0 Age-related osteoporosis without current pathological fracture (principal)
CPT/HCPCS: 96365; J3489